=== PATIENT | male | born 1955 | race Caucasian/White ===

== ENCOUNTER 2018-02-15 11:13 | Observation (INO) | payer OTHER ==
[2018-02-15] MEDS ORDERED: BABY ASPIRIN 81 MG CHEW PO ONE (11:44)
[2018-02-15] MEDS ORDERED: Nitrostat 0.4 MG (ED) SL ONE (11:44)
--- NOTE | 2018-02-15 11:44 | ERPHSYRPT ---
- History of Present Illness Time Seen by Provider: 02/15/18 11:33 Historian: patient Patient Subjective Stated Complaint: pt here for chest pain to left rib area today and then radiates at times to right rib area. started on b/p pill since . pt thinks it is hes meds that is making him feel bad, he states he feels bad for alttle bit after he takes hes meds Triage Nursing Assessment: pt alert, walked in, resp easy, chest clear, no edema ,skin w/d/p Physician History: PATIENT WITH A HISTORY OF HYPERTENSION, COMPLAINS OF BILATERAL CHEST PAIN FOR 6 DAYS ASSOCIATED WITH OCCASIONAL DYSPNEA, WITH NUMBNESS IN BOTH ARMS. RATES HIS CHEST PAIN 4/10 PAIN SCALE. HE DENIES DIAPHORESIS OR PALPITATIONS. Timing/Duration: day(s) (6) Activities at Onset: none Quality: dullness, pressure Location: substernal Chest Pain Radiation: arm Severity of Pain-Max: moderate Severity of Pain-Current: moderate Modifying Factors: Improves With: exertion Associated Symptoms: denies symptoms Prior Chest Pain/Cardiac Workup: no prior chest pain Nitro Today/Relief: 0.4 mg x 2, provided by ED Aspirin Treatment Today: 81 mg x 4, provided by ED Allergies/Adverse Reactions: No Known Drug Allergies Allergy (Unverified 02/15/18 11:15) Home Medications: Lisinopril 20 mg DAILY 02/15/18 [History] Naproxen Sodium 220 mg [Aleve 220 MG] 220 mg DAILY 02/15/18 [History] Hx Tetanus, Diphtheria Vaccination/Date Given: No Hx Influenza Vaccination/Date Given: No Hx Pneumococcal Vaccination/Date Given: No Immunizations Up to Date: Yes - Past Medical History Pertinent Past Medical History: Yes Cardiac History: Hypertension - Past Surgical History Past Surgical History: Yes - Social History Smoking Status: Current every day smoker Exposure to second hand smoke: Yes Drug Use: none Patient Lives Alone: No - Nursing Vital Signs Nursing Vital Signs: Initial Vital Signs Temperature 97.2 F 02/15/18 11:16 Pulse Rate 80 02/15/18 11:16 Respiratory Rate 16 02/15/18 11:16 Blood Pressure 182/93 02/15/18 11:16 Pain Scale Pain Intensity 0 - Physical Exam General Appearance: no apparent distress, alert Eye Exam: PERRL/EOMI, eyes nml inspection Ears, Nose, Throat Exam: normal ENT inspection, moist mucous membranes Neck Exam: normal inspection, non-tender, supple, full range of motion Respiratory Exam: normal breath sounds, lungs clear, No respiratory distress Cardiovascular Exam: regular rate/rhythm, normal heart sounds Gastrointestinal/Abdomen Exam: soft, No tenderness, No mass Back Exam: normal inspection, No CVA tenderness, No vertebral tenderness Extremity Exam: normal inspection, normal range of motion Neurologic Exam: alert, oriented x 3, cooperative, normal mood/affect, sensation nml, No motor deficits Skin Exam: normal color, warm, dry SpO2 Interpretation: normal SpO2: 99 Oxygen Delivery: Room Air - Course EKG Interpreted by Me: RATE, Sinus Rhythm (RATE 65), NORMAL AXIS - CT Exams Chest CT Interpretation: Discussed w/radiologist (NEGATIVE CT PE STUDY) Ordered Tests: Active Orders 24 hr Category Date Time Status Up With Assistance ROUTINE Activity 02/15/18 13:51 Active Call Admit Doctor for Orders ROUTINE Care 02/15/18 13:50 Active Ice Cream Dispenser STAT Care 02/15/18 11:45 Active Code Status Order ROUTINE Care 02/15/18 13:50 Active EKG-ER Only STAT Care 02/15/18 11:44 Active IV Care Q6H Care 02/15/18 13:50 Active IV Insertion STAT Care 02/15/18 11:44 Active Implement Chest Pain Pathway ROUTINE Care 02/15/18 13:50 Active Oxygen-ED Only NASAL CANNULA 2 lpm Care 02/15/18 11:[address] in Observation ROUTINE Care 02/15/18 13:50 Active Bernardo Wiggins, Apply ROUTINE Care 02/15/18 13:50 Active Telemetry ROUTINE Care 02/15/18 13:50 Active Vital Signs Q4H Care 02/15/18 13:50 Active Weight,Daily 0600 Care 02/15/18 13:50 Active Cardiac Diet Diet 02/15/18 Dinner Active CHEST WITH CONTRAST [CT] Stat Exams 02/15/18 11:45 Completed CBC W DIFF Stat Lab 02/15/18 11:45 Completed CMP Stat Lab 02/15/18 11:45 Completed LIPID PROFILE AM.LAB Lab 02/16/18 04:00 Ordered NT PRO BNP Stat Lab 02/15/18 11:45 Completed PROTIME WITH INR Stat Lab 02/15/18 11:45 Completed TROPONIN Q3H Lab 02/15/18 11:45 Completed TROPONIN Q3H Lab 02/15/18 14:45 Ordered TROPONIN Q3H Lab 02/15/18 17:45 Ordered TROPONIN Q3H Lab 02/15/18 20:45 Ordered TROPONIN Q3H Lab 02/15/18 23:45 Ordered EKG Q8HX2,QAMX3,PRN RT 02/15/18 13:50 Active Pulse Oximetry Q4H RT 02/15/18 13:50 Active Transfer Order Routine Transfer 02/15/18 Ordered Medication Summary Generic Name Dose Route Start Last Admin Trade Name Freq PRN Reason Stop Dose Admin Acetaminophen 650 mg 02/15/18 13:50 Tylenol 325 Mg PO 03/17/18 13:49 Q4H PRN PRN PAIN AND/OR FEVER Al Hydrox/Mg Hydrox/Simethicone 30 ml 02/15/18 13:50 Maalox Es 30 Ml Unit Dose PO 03/17/18 13:49 Q4H PRN PRN INDIGESTION Aspirin 325 mg 02/16/18 10:00 Ecotrin 325 Mg PO 03/18/18 09:59 DAILY MASOOD Sodium Chloride 1,000 mls @ 100 mls/hr 02/15/18 11:45 02/15/18 11:55 Sodium Chloride 0.9% 1000 Ml IV 03/17/18 11:44 100 mls/hr .Q10H MASOOD Administration Sodium Chloride 500 mls @ 20 mls/hr 02/15/18 14:00 Sodium Chloride 0.9% 500 Ml IV 03/17/18 13:59 .Q24H MASOOD Lisinopril 20 mg 02/16/18 10:00 Zestril 10 Mg PO 03/18/18 09:59 DAILY MASOOD Magnesium Hydroxide 30 - 60 ml 02/15/18 13:50 Milk Of Magnesia 30 Ml PO 03/17/18 13:49 QDP PRN CONSTIPATION Morphine Sulfate 2 mg 02/15/18 13:50 Morphine Sulfate 2 Mg Inj IV 02/20/18 13:49 .Q15MIN PRN PRN CHEST PAIN Nitroglycerin 0.4 mg 02/15/18 13:50 Nitrostat 0.4 Mg Tablet SL 03/17/18 13:49 .Q5MIN PRN CHEST PAIN Ondansetron HCl 4 mg 02/15/18 13:50 Zofran 4 Mg/2 Ml Vial IV 03/17/18 13:49 Q4H PRN PRN NAUSEA/VOMITING Senna/Docusate Sodium 2 udtab 02/15/18 13:50 Senokot-S Tablet PO 03/17/18 13:49 BID PRN PRN CONSTIPATION Discontinued Medications Generic Name Dose Route Start Last Admin Trade Name Freq PRN Reason Stop Dose Admin Aspirin 324 mg 02/15/18 11:44 02/15/18 11:53 Baby Aspirin 81 Mg Chew PO 02/15/18 11:45 324 mg STAT ONE Administration Nitroglycerin 0.4 mg 02/15/18 11:44 02/15/18 11:53 Nitrostat 0.4 Mg (Ed) SL 02/15/18 11:45 0.4 mg STAT ONE Administration Nitroglycerin 1 gm 02/15/18 12:35 02/15/18 12:45 Nitro-Bid 2% Ud Packets TOP 02/15/18 12:36 1 gm STAT ONE Administration Nitroglycerin Confirm 02/15/18 12:45 Nitro-Bid 2% Ud Packets Administered 02/15/18 12:46 Dose 1 gm .ROUTE .[facility] Lab/Rad Data: Laboratory Result Diagrams 02/15/18 11:45 02/15/18 11:45 Laboratory Results 02/15/18 02/15/18 02/15/18 Range/Units 11:45 11:45 11:45 WBC (4.0-10.5) K/mm3 RBC (4.1-5.6) M/mm3 Hgb (12.5-18.0) gm/dl Hct (42-50) % MCV (78-100) fl MCH (26-32) pg MCHC (32-36) g/dl RDW (11.5-14.0) % Plt Count (150-450) K/mm3 MPV (6-9.5) fl Gran % (36.0-66.0) % Eos # (Auto) (0-0.5) Absolute Lymphs (auto) (1.0-4.6) Absolute Monos (auto) (0.0-1.3) Lymphocytes % (24.0-44.0) % Monocytes % (0.0-12.0) % Eosinophils % (0.00-5.0) % Basophils % (0.0-0.4) % Absolute Granulocytes (1.4-6.9) Basophils # (0-0.4) PT 12.2 (8.83-12.87) SECONDS INR 1.05 (0.8-3.0) Sodium 139 (137-145) mmol/L Potassium 4.0 (3.5-5.1) mmol/L Chloride 104 (98-107) mmol/L Carbon Dioxide 27 (22-30) mmol/L Anion Gap 11.4 (5-15) MEQ/L BUN 13 (9-20) mg/dL Creatinine 0.90 (0.66-1.25) mg/dL Estimated GFR > 60.0 ML/MIN Glucose 106 (74-106) mg/dL Calcium 9.3 (8.4-10.2) mg/dL Total Bilirubin 0.80 (0.2-1.3) mg/dL AST 29 (17-59) U/L ALT 16 (0-50) U/L Alkaline Phosphatase 102 (38-126) U/L Troponin I < 0.012 (0.000-0.034) ng/mL NT-Pro-B Natriuret Pep 56.5 (0-900) pg/mL Serum Total Protein 7.2 (6.3-8.2) g/dL Albumin 4.5 (3.5-5.0) g/dL 12/14/18 Range/Units 11:45 WBC 6.3 (4.0-10.5) K/mm3 RBC 4.66 (4.1-5.6) M/mm3 Hgb 15.3 (12.5-18.0) gm/dl Hct 45.4 (42-50) % MCV 97.4 (78-100) fl MCH 32.8 H (26-32) pg MCHC 33.7 (32-36) g/dl RDW 12.8 (11.5-14.0) % Plt Count 161 (150-450) K/mm3 MPV 10.5 H (6-9.5) fl Gran % 71.9 H (36.0-66.0) % Eos # (Auto) 0.09 (0-0.5) Absolute Lymphs (auto) 1.14 (1.0-4.6) Absolute Monos (auto) 0.53 (0.0-1.3) Lymphocytes % 18.1 L (24.0-44.0) % Monocytes % 8.4 (0.0-12.0) % Eosinophils % 1.4 (0.00-5.0) % Basophils % 0.2 (0.0-0.4) % Absolute Granulocytes 4.52 (1.4-6.9) Basophils # 0.01 (0-0.4) PT (8.83-12.87) SECONDS INR (0.8-3.0) Sodium (137-145) mmol/L Potassium (3.5-5.1) mmol/L Chloride (98-107) mmol/L Carbon Dioxide (22-30) mmol/L Anion Gap (5-15) MEQ/L BUN (9-20) mg/dL Creatinine (0.66-1.25) mg/dL Estimated GFR ML/MIN Glucose (74-106) mg/dL Calcium (8.4-10.2) mg/dL Total Bilirubin (0.2-1.3) mg/dL AST (17-59) U/L ALT (0-50) U/L Alkaline Phosphatase (38-126) U/L Troponin I (0.000-0.034) ng/mL NT-Pro-B Natriuret Pep (0-900) pg/mL Serum Total Protein (6.3-8.2) g/dL Albumin (3.5-5.0) g/dL - Progress Progress: improved, re-examined Progress Note: 02/15/18 13:47 ADMINISTERED 4 BABY ASA, NITROGLYCERIN 0.4MG X 2, FOLLOWED BY NITROPASTE 1 INCH ANTERIOR CHEST WALL. Blood Culture(s) Obtained: No Antibiotics given: No Discussed with Dr.: Lawler (DISCUSSED WITH DR LAWLER AT 1315 FOR OBSERVATION) - Departure Time of Disposition: 14:00 Departure Disposition: Observation Clinical Impression: ACUTE CHEST PAIN Condition: Stable Critical Care Time: No Referrals: KEYANA MOSS, [employer]PER[employer] [Primary Care Provider] -
[2018-02-15] MEDS ORDERED: Sodium Chloride 0.9% 1000 ML 1,000 ML IV SCH (11:45)
[2018-02-15 11:54] LABS: BASOPHIL % 0.2 % (0.0-0.4); Basophil (Absolute #) 0.01 (0-0.4); Eosinophil % 1.4 % (0.00-5.0); Eosinophil (Absolute #) 0.09 (0-0.5); Granulocyte Absolute (ANC) 4.52 (1.4-6.9); Granulocytes % 71.9 % (36.0-66.0); Hematocrit 45.4 % (42-50); Hemoglobin 15.3 gm/dl (12.5-18.0); Lymphocyte (Absolute #) 1.14 (1.0-4.6); Lymphocytes % 18.1 % (24.0-44.0); Mean Cell Volume 97.4 fl (78-100); Mean Corpuscular Hemoglobin 32.8 pg (26-32); Mean Corpuscular Hgb Concent. 33.7 g/dl (32-36); Mean Platelet Volume 10.5 fl (6-9.5); Monocyte (Absolute #) 0.53 (0.0-1.3); Monocytes % 8.4 % (0.0-12.0); Platelet Count 161 K/mm3 (150-450); Red Blood Count 4.66 M/mm3 (4.1-5.6); Red Cell Distribution Width 12.8 % (11.5-14.0); White Blood Count 6.3 K/mm3 (4.0-10.5)
[2018-02-15 12:08] LABS: INR 1.05 (0.8-3.0)
[2018-02-15] MEDS ORDERED: NITRO-BID 2% UD PACKETS TOP ONE (12:35)
[2018-02-15 12:45] LABS: ALBUMIN 4.5 g/dL (3.5-5.0); ALKALINE PHOSPHATASE 102 U/L (38-126); ANION GAP 11.4 MEQ/L (5-15); BLOOD UREA NITROGEN 13 mg/dL (9-20); CHLORIDE 104 mmol/L (98-107); Calcium 9.3 mg/dL (8.4-10.2); Carbon Dioxide 27 mmol/L (22-30); Glucose 106 mg/dL (74-106); NT PRO BNP 56.5 pg/mL (0-900); SGOT/AST 29 U/L (17-59); SGPT/ALT 16 U/L (0-50); SODIUM 139 mmol/L (137-145); Total Protein 7.2 g/dL (6.3-8.2)
[2018-02-15] MEDS ORDERED: NITRO-BID 2% UD PACKETS ONE (12:45)
--- NOTE | 2018-02-15 12:49 | XRAY ---
Indication: Chest pain 5 days. Dyspnea and weakness. High blood pressure. Multiple contiguous axial images obtained through the chest using 80 cc Isovue 370 contrast and PE protocol. Comparison: None There is satisfactory opacification of the pulmonary arteries to include the lobar and segmental branches. No filling defect or pulmonary embolus. Heart is not enlarged. Aorta is normal in course and caliber. No pathologic mediastinal/hilar lymphadenopathy. Lungs inflated with mild biapical pleural parenchymal scarring and minimal left base scarring. No pulmonary mass, infiltrate, or effusion. Bony thorax intact with minimal degenerative changes throughout the spine and tiny multilevel Schmorl nodes. Limited upper abdomen demonstrates mild fatty liver and 2 cm left mid renal exophytic cyst. Impression: 1. Negative CT PE study. 2. Incidental scattered scarring, fatty liver, and left renal cyst. CT DI 15.25
[2018-02-15] MEDS ORDERED: TYLENOL 325 MG PO PRN (13:50)
[2018-02-15] MEDS ORDERED: MAALOX ES 30 ML UNIT DOSE PO PRN (13:50)
[2018-02-15] MEDS ORDERED: Zofran 4 MG/2 ML VIAL IV PRN (13:50)
[2018-02-15] MEDS ORDERED: MILK OF MAGNESIA 30 ML PO PRN (13:50)
[2018-02-15] MEDS ORDERED: Nitrostat 0.4 MG Tablet SL PRN (13:50)
[2018-02-15] MEDS ORDERED: Senokot-S Tablet PO PRN (13:50)
[2018-02-15] MEDS ORDERED: MORPHINE SULFATE 2 MG INJ IV PRN (13:50)
[2018-02-15] MEDS ORDERED: Sodium Chloride 0.9% 500 ML 500 ML IV SCH (14:00)
[2018-02-16 00:13] VITALS: PULSE 70
[2018-02-16 04:18] VITALS: O2SAT 95
[2018-02-16 06:13] LABS: Risk Ratio 3.6
[2018-02-16] MEDS ORDERED: BABY ASPIRIN 81 MG CHEW ONE (06:42)
[2018-02-16] MEDS ORDERED: Nitrostat 0.4 MG (ED) SL ONE (06:42)
--- NOTE | 2018-02-16 06:47 | PCM.SSS ---
History of Present Illness - Chief Complaint Chief Complaint: acute chest pain for 1 day History of Present Illness: is a 62 year old male.pt here for chest pain to left rib area today and then radiates at times to right rib area. started on b/p pill since . pt thinks it is hes meds that is making him feel bad, he states he feels bad for a little bit after he takes hes meds - Review of Systems Constitutional: No Fever, No Chills Eyes: No Symptoms Ears, Nose, & Throat: No Symptoms Respiratory: No Cough, No Short Of Breath Cardiac: Chest Pain, No Edema, No Syncope Abdominal/Gastrointestinal: No Abdominal Pain, No Nausea, No Vomiting, No Diarrhea Genitourinary Symptoms: No Dysuria Musculoskeletal: No Back Pain, No Neck Pain Skin: No Rash Neurological: No Dizziness, No Focal Weakness, No Sensory Changes Psychological: No Symptoms Endocrine: No Symptoms Hematologic/Lymphatic: No Symptoms Immunological/Allergic: No Symptoms Medications & Allergies Home Medications: Home Medication List Lisinopril 20 mg DAILY 02/15/18 [History Confirmed 02/15/18] Naproxen Sodium 220 mg [Aleve 220 MG] 220 mg DAILY 02/15/18 [History Confirmed 02/15/18] Nitroglycerin 0.4 mg Tablet [Nitrostat 0.4 MG Tablet] 0.4 mg SL .Q5MIN PRN #30 bottle 02/16/18 [Rx] Allergies/Adverse Reactions: Allergies Allergy/AdvReac Type Severity Reaction Status Date / Time No Known Drug Allergies Allergy Unverified 02/15/18 11:15 - Past Medical History Past Medical History: Yes Neurological History: No Pertinent History ENT History: No Pertinent History Cardiac History: Hypertension Respiratory History: No Pertinent History Endocrine Medical History: No Pertinent History Musculoskelatal History: No Pertinent History GI Medical History: No Pertinent History History: No Pertinent History Pyscho-Social History: No Pertinent History Male Reproductive Disorders: Penile Cancer - Past Surgical History Past Surgical History: Yes Neuro Surgical History: No Pertinent History Cardiac History: No Pertinent History Respiratory Surgery: No Pertinent History GI Surgical History: No Pertinent History Genitourinary Surgical Hx: No Pertinent History Musculskeletal Surgical Hx: No Pertinent History Male Surgical History: No Pertinent History - Social History Smoking Status: Current every day smoker Exposure to second hand smoke: Yes Alcohol: None Drug Use: none - Physical Exam Vital Signs: Vital Signs - 24 hr Temp Pulse Pulse Resp BP Pulse Ox 02/16/18 04:00 98.5 F 70 18 127/76 95 02/16/18 00:00 98.9 F 70 13 132/69 94 L 02/15/18 22:11 96 02/15/18 20:00 96 02/15/18 19:51 98.6 F 64 18 151/77 96 02/15/18 14:50 97 02/15/18 14:46 98.2 F 69 18 149/77 96 02/15/18 14:01 99 02/15/18 13:19 77 16 132/82 99 02/15/18 12:00 80 18 137/81 99 02/15/18 11:57 72 H 02/15/18 11:51 152/89 02/15/18 11:46 77 18 147/98 99 02/15/18 11:18 78 02/15/18 11:16 97.2 F 80 16 182/93 General Appearance: no apparent distress, alert Neurologic Exam: alert, oriented x 3, cooperative, normal mood/affect, nml cerebellar function, nml station & gait, sensation nml, No motor deficits Eye Exam: PERRL/EOMI, eyes nml inspection Ears, Nose, Throat Exam: normal ENT inspection, TMs normal, pharynx normal, moist mucous membranes Neck Exam: normal inspection, non-tender, supple, full range of motion Respiratory Exam: normal breath sounds, lungs clear, No respiratory distress Cardiovascular Exam: regular rate/rhythm, normal heart sounds, normal peripheral pulses Gastrointestinal/Abdomen Exam: soft, normal bowel sounds, No tenderness, No mass Back Exam: normal inspection, normal range of motion, No CVA tenderness, No vertebral tenderness Extremity Exam: normal inspection, normal range of motion, pelvis stable Skin Exam: normal color, warm, dry, No rash Lymphatic Exam: No adenopathy Results - Labs Lab/Micro Results: Lab Results-Last 24 Hours 02/15/18 02/15/18 02/15/18 Range/Units 11:45 11:45 11:45 WBC 6.3 (4.0-10.5) K/mm3 RBC 4.66 (4.1-5.6) M/mm3 Hgb 15.3 (12.5-18.0) gm/dl Hct 45.4 (42-50) % MCV 97.4 (78-100) fl MCH 32.8 H (26-32) pg MCHC 33.7 (32-36) g/dl RDW 12.8 (11.5-14.0) % Plt Count 161 (150-450) K/mm3 MPV 10.5 H (6-9.5) fl Gran % 71.9 H (36.0-66.0) % Eos # (Auto) 0.09 (0-0.5) Absolute Lymphs (auto) 1.14 (1.0-4.6) Absolute Monos (auto) 0.53 (0.0-1.3) Lymphocytes % 18.1 L (24.0-44.0) % Monocytes % 8.4 (0.0-12.0) % Eosinophils % 1.4 (0.00-5.0) % Basophils % 0.2 (0.0-0.4) % Absolute Granulocytes 4.52 (1.4-6.9) Basophils # 0.01 (0-0.4) PT 12.2 (8.83-12.87) SECONDS INR 1.05 (0.8-3.0) Sodium 139 (137-145) mmol/L Potassium 4.0 (3.5-5.1) mmol/L Chloride 104 (98-107) mmol/L Carbon Dioxide 27 (22-30) mmol/L Anion Gap 11.4 (5-15) MEQ/L BUN 13 (9-20) mg/dL Creatinine 0.90 (0.66-1.25) mg/dL Estimated GFR > 60.0 ML/MIN Glucose 106 (74-106) mg/dL Calcium 9.3 (8.4-10.2) mg/dL Total Bilirubin 0.80 (0.2-1.3) mg/dL AST 29 (17-59) U/L ALT 16 (0-50) U/L Alkaline Phosphatase 102 (38-126) U/L Troponin I (0.000-0.034) ng/mL NT-Pro-B Natriuret Pep 56.5 (0-900) pg/mL Serum Total Protein 7.2 (6.3-8.2) g/dL Albumin 4.5 (3.5-5.0) g/dL Triglycerides (30-150) mg/dL Cholesterol (50-200) mg/dL LDL Cholesterol (30-100) mg/dL HDL Cholesterol (40-60) mg/dL Heart Disease Risk Ratio 02/15/18 02/15/18 02/15/18 Range/Units 11:45 15:15 17:45 WBC (4.0-10.5) K/mm3 RBC (4.1-5.6) M/mm3 Hgb (12.5-18.0) gm/dl Hct (42-50) % MCV (78-100) fl MCH (26-32) pg MCHC (32-36) g/dl RDW (11.5-14.0) % Plt Count (150-450) K/mm3 MPV (6-9.5) fl Gran % (36.0-66.0) % Eos # (Auto) (0-0.5) Absolute Lymphs (auto) (1.0-4.6) Absolute Monos (auto) (0.0-1.3) Lymphocytes % (24.0-44.0) % Monocytes % (0.0-12.0) % Eosinophils % (0.00-5.0) % Basophils % (0.0-0.4) % Absolute Granulocytes (1.4-6.9) Basophils # (0-0.4) PT (8.83-12.87) SECONDS INR (0.8-3.0) Sodium (137-145) mmol/L Potassium (3.5-5.1) mmol/L Chloride (98-107) mmol/L Carbon Dioxide (22-30) mmol/L Anion Gap (5-15) MEQ/L BUN (9-20) mg/dL Creatinine (0.66-1.25) mg/dL Estimated GFR ML/MIN Glucose (74-106) mg/dL Calcium (8.4-10.2) mg/dL Total Bilirubin (0.2-1.3) mg/dL AST (17-59) U/L ALT (0-50) U/L Alkaline Phosphatase (38-126) U/L Troponin I < 0.012 < 0.012 < 0.012 (0.000-0.034) ng/mL NT-Pro-B Natriuret Pep (0-900) pg/mL Serum Total Protein (6.3-8.2) g/dL Albumin (3.5-5.0) g/dL Triglycerides (30-150) mg/dL Cholesterol (50-200) mg/dL LDL Cholesterol (30-100) mg/dL HDL Cholesterol (40-60) mg/dL Heart Disease Risk Ratio 02/16/18 Range/Units 05:35 WBC (4.0-10.5) K/mm3 RBC (4.1-5.6) M/mm3 Hgb (12.5-18.0) gm/dl Hct (42-50) % MCV (78-100) fl MCH (26-32) pg MCHC (32-36) g/dl RDW (11.5-14.0) % Plt Count (150-450) K/mm3 MPV (6-9.5) fl Gran % (36.0-66.0) % Eos # (Auto) (0-0.5) Absolute Lymphs (auto) (1.0-4.6) Absolute Monos (auto) (0.0-1.3) Lymphocytes % (24.0-44.0) % Monocytes % (0.0-12.0) % Eosinophils % (0.00-5.0) % Basophils % (0.0-0.4) % Absolute Granulocytes (1.4-6.9) Basophils # (0-0.4) PT (8.83-12.87) SECONDS INR (0.8-3.0) Sodium (137-145) mmol/L Potassium (3.5-5.1) mmol/L Chloride (98-107) mmol/L Carbon Dioxide (22-30) mmol/L Anion Gap (5-15) MEQ/L BUN (9-20) mg/dL Creatinine (0.66-1.25) mg/dL Estimated GFR ML/MIN Glucose (74-106) mg/dL Calcium (8.4-10.2) mg/dL Total Bilirubin (0.2-1.3) mg/dL AST (17-59) U/L ALT (0-50) U/L Alkaline Phosphatase (38-126) U/L Troponin I (0.000-0.034) ng/mL NT-Pro-B Natriuret Pep (0-900) pg/mL Serum Total Protein (6.3-8.2) g/dL Albumin (3.5-5.0) g/dL Triglycerides 66 (30-150) mg/dL Cholesterol 135 (50-200) mg/dL LDL Cholesterol 83 (30-100) mg/dL HDL Cholesterol 37 L (40-60) mg/dL Heart Disease Risk Ratio 3.6 - Radiology Impressions Radiology Exams & Impressions: Radiology Procedures Category Date Time Status CHEST WITH CONTRAST [CT] Stat Exams 02/15/18 11:45 Completed - Other Procedures and Tests Respiratory Therapy 02/17/18 05:00 EKG ONCE 02/18/18 05:00 EKG ONCE Assessment/Plan (1) Chest pain Current Visit: Yes Status: Acute Onset Date: ~02/15/18 Code(s): R07.9 - CHEST PAIN, UNSPECIFIED (2) Hypertension Current Visit: Yes Status: Acute Onset Date: ~02/15/18 Code(s): I10 - ESSENTIAL (PRIMARY) HYPERTENSION Hospital Summary - Hospital Course Hospital Course: Last Vital Signs Temp 98.5 F 02/16/18 04:00 Pulse 70 02/16/18 04:00 Resp 18 02/16/18 04:00 BP 127/76 02/16/18 04:00 Pulse Ox 95 02/16/18 04:00 Allergies No Known Drug Allergies Allergy (Unverified 02/15/18 11:15) Active Medications Acetaminophen (Tylenol 325 Mg) 650 mg PO Q4H PRN PRN PRN Reason: PAIN AND/OR FEVER Stop: 03/17/18 13:49 Al Hydrox/Mg Hydrox/Simethicone (Maalox Es 30 Ml Unit Dose) 30 ml PO Q4H PRN PRN PRN Reason: INDIGESTION Stop: 03/17/18 13:49 Last Admin: 02/16/18 03:48 Dose: 30 ml Aspirin (Ecotrin 325 Mg) 325 mg PO DAILY [facility] Stop: 03/18/18 09:59 Sodium Chloride (Sodium Chloride 0.9% 500 Ml) 500 mls @ 20 mls/hr IV .Q24H [facility] Stop: 03/17/18 13:59 Influenza Virus Vaccine (Fluzone Quad (36mo-64yo) [id number] Syringe) 60 mcg IM .ONCE ONE Stop: 02/16/18 10:01 Lisinopril (Zestril 20 Mg) 20 mg PO DAILY [facility] Stop: 03/18/18 09:59 Magnesium Hydroxide (Milk Of Magnesia 30 Ml) 30 - 60 ml PO QDP PRN PRN Reason: CONSTIPATION Stop: 03/17/18 13:49 Morphine Sulfate (Morphine Sulfate 2 Mg Inj) 2 mg IV .Q15MIN PRN PRN PRN Reason: CHEST PAIN Stop: 02/20/18 13:49 Naproxen (Naprosyn 500 Mg) 250 mg PO DAILY [facility] Stop: 03/18/18 09:59 Nitroglycerin (Nitrostat 0.4 Mg Tablet) 0.4 mg SL .Q5MIN PRN PRN Reason: CHEST PAIN Stop: 03/17/18 13:49 Ondansetron HCl (Zofran 4 Mg/2 Ml Vial) 4 mg IV Q4H PRN PRN PRN Reason: NAUSEA/VOMITING Stop: 03/17/18 13:49 Senna/Docusate Sodium (Senokot-S Tablet) 2 udtab PO BID PRN PRN PRN Reason: CONSTIPATION Stop: 03/17/18 13:49 Intake & Output 02/15/18 02/16/18 11:59 11:59 Intake Total 1801 Output Total 2200 Balance -399 Weight 87.09 kg 85.5 kg Orders 02/16/18 10:00 Flu Vacc [id number] 36Mos Up/Pf [FLUZONE QUAD (36mo-64yo) [id number] SYRINGE] 60 mcg IM .ONCE ONE Naproxen 500 mg [Naprosyn 500 MG] 250 mg PO DAILY Lab Tests 02/15/18 02/15/18 02/15/18 11:45 11:45 11:45 WBC 6.3 RBC 4.66 Hgb 15.3 Hct 45.4 MCV 97.4 MCH 32.8 H MCHC 33.7 RDW 12.8 Plt Count 161 MPV 10.5 H Gran % 71.9 H Eos # (Auto) 0.09 Absolute Lymphs (auto) 1.14 Absolute Monos (auto) 0.53 Lymphocytes % 18.1 L Monocytes % 8.4 Eosinophils % 1.4 Basophils % 0.2 Absolute Granulocytes 4.52 Basophils # 0.01 PT 12.2 INR 1.05 Sodium 139 Potassium 4.0 Chloride 104 Carbon Dioxide 27 Anion Gap 11.4 BUN 13 Creatinine 0.90 Estimated GFR > 60.0 Glucose 106 Calcium 9.3 Total Bilirubin 0.80 AST 29 ALT 16 Alkaline Phosphatase 102 Troponin I NT-Pro-B Natriuret Pep 56.5 Serum Total Protein 7.2 Albumin 4.5 Triglycerides Cholesterol LDL Cholesterol HDL Cholesterol Heart Disease Risk Ratio 02/15/18 02/15/18 02/15/18 11:45 15:15 17:45 WBC RBC Hgb Hct MCV MCH MCHC RDW Plt Count MPV Gran % Eos # (Auto) Absolute Lymphs (auto) Absolute Monos (auto) Lymphocytes % Monocytes % Eosinophils % Basophils % Absolute Granulocytes Basophils # PT INR Sodium Potassium Chloride Carbon Dioxide Anion Gap BUN Creatinine Estimated GFR Glucose Calcium Total Bilirubin AST ALT Alkaline Phosphatase Troponin I < 0.012 < 0.012 < 0.012 NT-Pro-B Natriuret Pep Serum Total Protein Albumin Triglycerides Cholesterol LDL Cholesterol HDL Cholesterol Heart Disease Risk Ratio 02/16/18 05:35 WBC RBC Hgb Hct MCV MCH MCHC RDW Plt Count MPV Gran % Eos # (Auto) Absolute Lymphs (auto) Absolute Monos (auto) Lymphocytes % Monocytes % Eosinophils % Basophils % Absolute Granulocytes Basophils # PT INR Sodium Potassium Chloride Carbon Dioxide Anion Gap BUN Creatinine Estimated GFR Glucose Calcium Total Bilirubin AST ALT Alkaline Phosphatase Troponin I NT-Pro-B Natriuret Pep Serum Total Protein Albumin Triglycerides 66 Cholesterol 135 LDL Cholesterol 83 HDL Cholesterol 37 L Heart Disease Risk Ratio 3.6 - Vitals & Intake/Output Vital Signs: Vital Signs Temperature 98.5 F 02/16/18 04:00 Pulse Rate 70 02/16/18 04:00 Respiratory Rate 18 02/16/18 04:00 Blood Pressure 127/76 02/16/18 04:00 O2 Sat by Pulse Oximetry 95 02/16/18 04:00 Intake & Output: Intake & Output 02/13/18 02/14/18 02/15/18 02/16/18 11:59 11:59 11:59 11:59 Intake Total 1801 Output Total 2200 Balance -399 Weight 87.09 kg 85.5 kg - Lab Result Diagrams: 02/15/18 11:45 02/15/18 11:45 Lab Results-Last 24 Hrs: Lab Results-Last 24 Hours 02/15/18 02/15/18 02/15/18 Range/Units 11:45 11:45 11:45 WBC 6.3 (4.0-10.5) K/mm3 RBC 4.66 (4.1-5.6) M/mm3 Hgb 15.3 (12.5-18.0) gm/dl Hct 45.4 (42-50) % MCV 97.4 (78-100) fl MCH 32.8 H (26-32) pg MCHC 33.7 (32-36) g/dl RDW 12.8 (11.5-14.0) % Plt Count 161 (150-450) K/mm3 MPV 10.5 H (6-9.5) fl Gran % 71.9 H (36.0-66.0) % Eos # (Auto) 0.09 (0-0.5) Absolute Lymphs (auto) 1.14 (1.0-4.6) Absolute Monos (auto) 0.53 (0.0-1.3) Lymphocytes % 18.1 L (24.0-44.0) % Monocytes % 8.4 (0.0-12.0) % Eosinophils % 1.4 (0.00-5.0) % Basophils % 0.2 (0.0-0.4) % Absolute Granulocytes 4.52 (1.4-6.9) Basophils # 0.01 (0-0.4) PT 12.2 (8.83-12.87) SECONDS INR 1.05 (0.8-3.0) Sodium 139 (137-145) mmol/L Potassium 4.0 (3.5-5.1) mmol/L Chloride 104 (98-107) mmol/L Carbon Dioxide 27 (22-30) mmol/L Anion Gap 11.4 (5-15) MEQ/L BUN 13 (9-20) mg/dL Creatinine 0.90 (0.66-1.25) mg/dL Estimated GFR > 60.0 ML/MIN Glucose 106 (74-106) mg/dL Calcium 9.3 (8.4-10.2) mg/dL Total Bilirubin 0.80 (0.2-1.3) mg/dL AST 29 (17-59) U/L ALT 16 (0-50) U/L Alkaline Phosphatase 102 (38-126) U/L Troponin I (0.000-0.034) ng/mL NT-Pro-B Natriuret Pep 56.5 (0-900) pg/mL Serum Total Protein 7.2 (6.3-8.2) g/dL Albumin 4.5 (3.5-5.0) g/dL Triglycerides (30-150) mg/dL Cholesterol (50-200) mg/dL LDL Cholesterol (30-100) mg/dL HDL Cholesterol (40-60) mg/dL Heart Disease Risk Ratio 02/15/18 02/15/18 02/15/18 Range/Units 11:45 15:15 17:45 WBC (4.0-10.5) K/mm3 RBC (4.1-5.6) M/mm3 Hgb (12.5-18.0) gm/dl Hct (42-50) % MCV (78-100) fl MCH (26-32) pg MCHC (32-36) g/dl RDW (11.5-14.0) % Plt Count (150-450) K/mm3 MPV (6-9.5) fl Gran % (36.0-66.0) % Eos # (Auto) (0-0.5) Absolute Lymphs (auto) (1.0-4.6) Absolute Monos (auto) (0.0-1.3) Lymphocytes % (24.0-44.0) % Monocytes % (0.0-12.0) % Eosinophils % (0.00-5.0) % Basophils % (0.0-0.4) % Absolute Granulocytes (1.4-6.9) Basophils # (0-0.4) PT (8.83-12.87) SECONDS INR (0.8-3.0) Sodium (137-145) mmol/L Potassium (3.5-5.1) mmol/L Chloride (98-107) mmol/L Carbon Dioxide (22-30) mmol/L Anion Gap (5-15) MEQ/L BUN (9-20) mg/dL Creatinine (0.66-1.25) mg/dL Estimated GFR ML/MIN Glucose (74-106) mg/dL Calcium (8.4-10.2) mg/dL Total Bilirubin (0.2-1.3) mg/dL AST (17-59) U/L ALT (0-50) U/L Alkaline Phosphatase (38-126) U/L Troponin I < 0.012 < 0.012 < 0.012 (0.000-0.034) ng/mL NT-Pro-B Natriuret Pep (0-900) pg/mL Serum Total Protein (6.3-8.2) g/dL Albumin (3.5-5.0) g/dL Triglycerides (30-150) mg/dL Cholesterol (50-200) mg/dL LDL Cholesterol (30-100) mg/dL HDL Cholesterol (40-60) mg/dL Heart Disease Risk Ratio 02/16/18 Range/Units 05:35 WBC (4.0-10.5) K/mm3 RBC (4.1-5.6) M/mm3 Hgb (12.5-18.0) gm/dl Hct (42-50) % MCV (78-100) fl MCH (26-32) pg MCHC (32-36) g/dl RDW (11.5-14.0) % Plt Count (150-450) K/mm3 MPV (6-9.5) fl Gran % (36.0-66.0) % Eos # (Auto) (0-0.5) Absolute Lymphs (auto) (1.0-4.6) Absolute Monos (auto) (0.0-1.3) Lymphocytes % (24.0-44.0) % Monocytes % (0.0-12.0) % Eosinophils % (0.00-5.0) % Basophils % (0.0-0.4) % Absolute Granulocytes (1.4-6.9) Basophils # (0-0.4) PT (8.83-12.87) SECONDS INR (0.8-3.0) Sodium (137-145) mmol/L Potassium (3.5-5.1) mmol/L Chloride (98-107) mmol/L Carbon Dioxide (22-30) mmol/L Anion Gap (5-15) MEQ/L BUN (9-20) mg/dL Creatinine (0.66-1.25) mg/dL Estimated GFR ML/MIN Glucose (74-106) mg/dL Calcium (8.4-10.2) mg/dL Total Bilirubin (0.2-1.3) mg/dL AST (17-59) U/L ALT (0-50) U/L Alkaline Phosphatase (38-126) U/L Troponin I (0.000-0.034) ng/mL NT-Pro-B Natriuret Pep (0-900) pg/mL Serum Total Protein (6.3-8.2) g/dL Albumin (3.5-5.0) g/dL Triglycerides 66 (30-150) mg/dL Cholesterol 135 (50-200) mg/dL LDL Cholesterol 83 (30-100) mg/dL HDL Cholesterol 37 L (40-60) mg/dL Heart Disease Risk Ratio 3.6 - Radiology Exams Ordered Rad Exams-Entire Visit: Radiology Procedures Category Date Time Status CHEST WITH CONTRAST [CT] Stat Exams 02/15/18 11:45 Completed - Procedures and Test Procedures and Tests throughout Hospitalization: Therapy Orders & Screens 02/15/18 15:15 Smoking Cessation Education ONCE Comment: Diagnosis: acute chest pain Smoking Status: Current every day smoker Do you dip or chew tobacco: No 02/15/18 19:17 EKG ONCE Comment: 02/16/18 05:00 EKG ONCE Comment: 02/17/18 05:00 EKG ONCE Comment: 02/18/18 05:00 EKG ONCE Comment: - Discharge Discharge Date: 02/16/18 Disposition: Home, Self-Care Condition: Stable Prescriptions: New Nitroglycerin 0.4 mg Tablet [Nitrostat 0.4 MG Tablet] 0.4 mg SL .Q5MIN PRN #30 bottle PRN Reason: Chest Pain Continue Naproxen Sodium 220 mg [Aleve 220 MG] 220 mg DAILY Lisinopril 20 mg DAILY Follow up with: KEYANA MOSS NP [Primary Care Provider] - 1 Week
[2018-02-16 08:16] VITALS: BP 151/82
[2018-02-16] MEDS ORDERED: Ecotrin 325 MG PO SCH (10:00)
[2018-02-16] MEDS ORDERED: Naprosyn 500 MG PO SCH (10:00)
[2018-02-16] MEDS ORDERED: Zestril 20 MG PO SCH (10:00)
[2018-02-16] MEDS ORDERED: FLUZONE QUAD (36mo-64yo) 2018-2019 SYRINGE IM ONE (10:00)
== END 2018-02-16 10:00 | disposition home or self-care (01) ==
LOC: ED 11:13 → MED SURG 14:17
PROVIDERS: ADMIT General Practice; ATTEND General Practice
DX: R07.9 Chest pain, unspecified (principal); I10 Essential (primary) hypertension; Z23 Encounter for immunization; Z85.89 Personal history of malignant neoplasm of other organs and systems; Z72.0 Tobacco use
CPT/HCPCS: 36000; 36415; 71260; 80053; 80061; 83721; 83880; 84484; 85025; 85610; 93005; 93041; 93268; 94760; 96360; 96361; 99285; G0008; G0378; 90686; A9270-GY

== ENCOUNTER 2023-09-15 18:10 | Emergency (ER) | payer MEDICARE ==
[2023-09-15 18:26] VITALS: TEMP 97.8
--- NOTE | 2023-09-15 18:31 | ERPHSYRPT ---
- History of Present Illness Source: patient Exam Limitations: no limitations Patient Subjective Stated Complaint: C/O "spitting up" but not vomiting, light headedness, "being sick," and sweaty for 2 days Triage Nursing Assessment: Patient arrived by ambulance. He is alert and oriented. No SOB. Patient is diaphoretic. Patient ambulated per self from EMS cot to ER bed without difficulties. Hx Tetanus, Diphtheria Vaccination/Date Given: Yes Hx Influenza Vaccination/Date Given: Yes Hx Pneumococcal Vaccination/Date Given: No Immunizations Up to Date: Yes <RAFITA ARREGUIN - Last Filed: 09/15/23 18:31> - History of Present Illness Timing/Duration: day(s) (3) Cough Quality/Degree: mild, sputum Possible Cause: no prior episodes Modifying Factors: Worsens With: nothing Associated Symptoms: cough, dizziness, facial pain, lightheadedness, nasal congestion, nasal drainage, sinus infection, No fever, No chills, No chest pain/soreness, No earache, No headache, No shortness of breath, No sore throat, No wheezing <JULIA NAVA - Last Filed: 09/17/23 08:16> - History of Present Illness Time Seen by Provider: 09/15/23 18:30 Physician History: The patient, with a history of hypertension, presented with a chief complaint of lightheadedness and dizziness that has been occurring for the past couple of days. The episodes of dizziness were reported to occur approximately every hour, even while sitting, and were associated with a sensation of the room spinning. The patient also reported experiencing nausea and excessive sweating during these episodes. In addition to these symptoms, the patient reported having a sinus infection, characterized by facial pain and drainage, which started a few days prior to the onset of the dizziness. The patient denied having any fevers, chest pain, shortness of breath, or gastrointestinal symptoms. However, they did report coughing when the sinus drainage began. The patient also reported a hard, painless mass on the inside of their mouth, which they initially thought was a burn. They denied any drainage from the mass and reported that it was too painful to puncture with a needle. The patient denied any history of tobacco use. The patient's current medication regimen includes a blood pressure medication, which they were advised to take slowly due to potential side effects. The patient did not report any known allergies to antibiotics. (JULIA NAVA) Allergies/Adverse Reactions: No Known Drug Allergies Allergy (Verified 09/15/23 18:13) Home Medications: lisinopriL [Lisinopril] 20 mg DAILY 02/15/18 [History] Aspirin EC 81 mg [Ecotrin 81 mg] 81 mg PO CLARIFY 09/15/23 [History] Travel Risk - International Travel Have you traveled outside of the country in past 3 weeks: No - Emerging Infectious Disease Are you exhibiting symptoms associated with any current EIDs: Yes Symptoms: Headaches/Body Aches/, Other (Please Comment) <RAFITA ARREGUIN - Last Filed: 09/15/23 18:31> - Review of Systems All Other Systems: Reviewed and Negative <JULIA NAVA - Last Filed: 09/17/23 08:16> - Past Medical History Pertinent Past Medical History: Yes Neurological History: No Pertinent History ENT History: No Pertinent History Cardiac History: Hypertension Respiratory History: No Pertinent History Endocrine Medical History: No Pertinent History Musculoskeletal History: No Pertinent History GI Medical History: Hernia History: No Pertinent History Psycho-Social History: No Pertinent History Male Reproductive Disorders: No Pertinent History - Past Surgical History Past Surgical History: Yes Neuro Surgical History: No Pertinent History Cardiac: No Pertinent History Respiratory: No Pertinent History Gastrointestinal: Hernia Repair Genitourinary: No Pertinent History Musculoskeletal: No Pertinent History Male Surgical History: No Pertinent History - Social History Smoking Status: Current every day smoker How long have you smoked: 50 YEARS Exposure to second hand smoke: No Drug Use: none Patient Lives Alone: No - Social Determinants of Health Will the patient participate in the screening: Yes Do you worry about a steady place to live?: No Do you have any problems with any of the following?: No known problems In the past 12 months,have you had to go without utilities?: No Transportation Issues: No Has anyone in your support network made you feel unsafe?: No Have you or anyone in your house had to go without enough: No <RAFITA ARREGUIN - Last Filed: 09/15/23 18:31> - Physical Exam SpO2: 95 <RAFITA ARREGUIN - Last Filed: 09/15/23 18:31> - Physical Exam General Appearance: no apparent distress Eye Exam: PERRL/EOMI, eyes nml inspection Ears, Nose, Throat Exam: TMs normal, pharynx normal, moist mucous membranes, other (firm [id number] lesion left upper palate, TTP, no drainage, mild erythema) Neck Exam: normal inspection, non-tender, supple, full range of motion Respiratory Exam: airway intact, diminished breath sounds, wheezing, No chest tenderness, No respiratory distress Cardiovascular Exam: regular rate/rhythm, normal heart sounds, capillary refill <2 sec, No edema Gastrointestinal/Abdomen Exam: soft, No tenderness, No distention, No mass, No guarding, No rebound Extremity Exam: No swelling, No tenderness Neurologic Exam: alert, oriented x 3, cooperative Skin Exam: normal color, warm, dry SpO2 Interpretation: normal O2 Delivery: Room Air <JULIA NAVA - Last Filed: 09/17/23 08:16> - Nursing Vital Signs Nursing Vital Signs: Initial Vital Signs Temperature 97.8 F 09/15/23 18:15 Pulse Rate 68 09/15/23 18:15 Respiratory Rate 17 09/15/23 18:15 Blood Pressure 128/71 09/15/23 18:15 O2 Sat by Pulse Oximetry 95 09/15/23 18:15 Pain Scale Pain Intensity 0 - Course Nursing assessment & vital signs reviewed: Yes - CT Exams Maxillofacial Bones CT Interpretation: Tele-radiologist Report, Other (sinusitis, no mass appreciated in palate) <JULIA NAVA - Last Filed: 09/17/23 08:16> Ordered Tests: Medication Summary Discontinued Medications Generic Name Dose Route Start Last Admin Trade Name Dickq PRN Reason Stop Dose Admin Methylprednisolone Sodium 0 mg 09/15/23 19:22 09/15/23 19:28 Succinate 125 mg/ Sterile IV 09/15/23 19:23 125 mg Water 2 ml STAT ONE Administration Doxycycline Hyclate 100 mg 09/15/23 19:21 09/15/23 19:28 Doxycycline Hyclate 100 Mg Tablet PO 09/15/23 19:22 100 mg STAT ONE Administration Doxycycline Hyclate Confirm 09/15/23 19:27 Doxycycline Hyclate 100 Mg Tablet Administered 09/15/23 19:28 Dose 100 mg .ROUTE .STK-MED ONE Sodium Chloride 1,000 mls @ 999 mls/hr 09/15/23 18:29 09/15/23 19:46 Sodium Chloride 0.9% 1000 Ml IV 09/15/23 19:29 Infused .Q1H1M STA Infusion Sodium Chloride Confirm 09/15/23 18:40 Sodium Chloride 0.9% 1000 Ml Administered 09/15/23 18:41 Dose 1,000 mls @ ud .ROUTE .STK-MED ONE Meclizine HCl 25 mg 09/15/23 22:29 09/15/23 22:31 Meclizine Hcl 25 Mg Tablet PO 09/15/23 22:30 25 mg STAT ONE Administration Meclizine HCl Confirm 09/15/23 22:31 Meclizine Hcl 25 Mg Tablet Administered 09/15/23 22:32 Dose 25 mg .ROUTE .STK-MED ONE Methylprednisolone Sodium Succinate Confirm 09/15/23 19:27 Methylprednis Sod Succ 125 Mg/2 Ml Vial Administered 09/15/23 19:28 Dose 125 mg .ROUTE .STK-MED ONE Ondansetron HCl 4 mg 09/15/23 18:29 09/15/23 18:41 Ondansetron Hcl 4 Mg/2 Ml Vial IV 09/15/23 18:30 4 mg STAT ONE Administration Ondansetron HCl Confirm 09/15/23 18:40 Ondansetron Hcl 4 Mg/2 Ml Vial Administered 09/15/23 18:41 Dose 4 mg .ROUTE .STK-MED ONE Pantoprazole Sodium 40 mg 09/15/23 21:46 09/15/23 21:56 Pantoprazole 40 Mg Vial IV 09/15/23 21:47 40 mg STAT ONE Administration Pantoprazole Sodium Confirm 09/15/23 21:55 Pantoprazole 40 Mg Vial Administered 09/15/23 21:56 Dose 40 mg IV .STK-MED ONE Sterile Water Confirm 09/15/23 19:27 Water For Injection,Sterile 10 Ml Vial Administered 09/15/23 19:28 Dose 10 ml IJ .STK-MED ONE Lab/Rad Data: Laboratory Result Diagrams 09/15/23 18:30 09/15/23 18:30 Laboratory Results 09/15/23 09/15/23 09/15/23 Range/Units 21:30 18:45 18:30 WBC (4.23-9.07) x10^3/uL RBC (4.63-6.08) x10^6/uL Hgb (13.7-17.5) g/dL Hct (40.1-51.0) % MCV (79.0-92.2) fL MCH (25.7-32.2) pg MCHC (32.3-36.5) g/dL RDW (11.6-14.4) % Plt Count (163-337) x10^3/uL MPV (9.4-12.4) fL Gran % (34.0-67.9) % Immature Gran % (Auto) (0.001-0.429) % Nucleat RBC Rel Count (0.00-0.2) % Eos # (Auto) (0.04-0.54) x10^3/uL Immature Gran # (Auto) (0.001-0.031) x10^3u/L Absolute Lymphs (auto) (1.32-3.57) x10^3/uL Absolute Monos (auto) (0.30-0.82) x10^3/uL Absolute Nucleated RBC (0.00-0.012) x10^3u/L Lymphocytes % (21.8-53.1) % Monocytes % (5.3-12.2) % Eosinophils % (0.8-7.0) % Basophils % (0.2-1.2) % Absolute Granulocytes (1.78-5.38) x10^3/uL Basophils # (0.01-0.08) x10^3/uL Sodium (135-145) mmol/L Potassium (3.5-5.1) mmol/L Chloride (98-107) mmol/L Carbon Dioxide (22-30) mmol/L Anion Gap (5-15) MEQ/L BUN (9-20) mg/dL Creatinine (0.66-1.25) mg/dL Estimated GFR ML/MIN Glucose (74-106) mg/dL Lactic Acid 1.3 (0.4-2.0) Calcium (8.4-10.2) mg/dL Total Bilirubin (0.2-1.3) mg/dL AST (17-59) U/L ALT (0-50) U/L Alkaline Phosphatase (38-126) U/L Troponin I (0.000-0.033) ng/mL Serum Total Protein (6.3-8.2) g/dL Albumin (3.5-5.0) g/dL Urine Color Yellow (Yellow) Urine Appearance Clear (Clear) Urine pH 6.5 (4.6-8.0) Ur Specific Shepherd >=1.030 A (1.005-1.030) Urine Protein Trace A (Negative) Urine Glucose (UA) Negative (Negative) mg/dL Urine Ketones Trace A (Negative) Urine Blood Negative (Negative) Urine Nitrite Negative (Negative) Urine Bilirubin Negative (Negative) Urine Urobilinogen 1.0 A (0.2) mg/dL Ur Leukocyte Esterase Negative (Negative) U Hyaline Cast (Auto) NONE SEEN (0-2) /LPF Urine Microscopic RBC 0-2 (0-5) /HPF Urine Microscopic WBC 0-2 (0-5) /HPF Ur Epithelial Cells None Seen (None Seen) /HPF Urine Bacteria None Seen (None Seen) /HPF Urine Culture Reflexed NO (NO) Influenza Type A Ag NEGATIVE (NEGATIVE) Influenza Type B Ag NEGATIVE (NEGATIVE) RSV (PCR) NEGATIVE (NEGATIVE) SARS-CoV-2 (PCR) NEGATIVE (NEGATIVE) 09/15/23 09/15/23 09/15/23 Range/Units 18:30 18:30 18:30 WBC 9.4 H (4.23-9.07) x10^3/uL RBC 4.53 L (4.63-6.08) x10^6/uL Hgb 15.1 (13.7-17.5) g/dL Hct 44.2 (40.1-51.0) % MCV 97.6 H (79.0-92.2) fL MCH 33.3 H (25.7-32.2) pg MCHC 34.2 (32.3-36.5) g/dL RDW 12.7 (11.6-14.4) % Plt Count 201 (163-337) x10^3/uL MPV 10.3 (9.4-12.4) fL Gran % 70.8 H (34.0-67.9) % Immature Gran % (Auto) 0.4 (0.001-0.429) % Nucleat RBC Rel Count 0.0 (0.00-0.2) % Eos # (Auto) 0.16 (0.04-0.54) x10^3/uL Immature Gran # (Auto) 0.04 H (0.001-0.031) x10^3u/L Absolute Lymphs (auto) 1.77 (1.32-3.57) x10^3/uL Absolute Monos (auto) 0.71 (0.30-0.82) x10^3/uL Absolute Nucleated RBC 0.00 (0.00-0.012) x10^3u/L Lymphocytes % 18.9 L (21.8-53.1) % Monocytes % 7.6 (5.3-12.2) % Eosinophils % 1.7 (0.8-7.0) % Basophils % 0.6 (0.2-1.2) % Absolute Granulocytes 6.64 H (1.78-5.38) x10^3/uL Basophils # 0.06 (0.01-0.08) x10^3/uL Sodium 139 (135-145) mmol/L Potassium 3.8 (3.5-5.1) mmol/L Chloride 106 (98-107) mmol/L Carbon Dioxide 26 (22-30) mmol/L Anion Gap 10.8 (5-15) MEQ/L BUN 21 H (9-20) mg/dL Creatinine 0.81 (0.66-1.25) mg/dL Estimated GFR 97.9 ML/MIN Glucose 136 H (74-106) mg/dL Lactic Acid (0.4-2.0) Calcium 9.2 (8.4-10.2) mg/dL Total Bilirubin 0.60 (0.2-1.3) mg/dL AST 27 (17-59) U/L ALT 19 (0-50) U/L Alkaline Phosphatase 114 (38-126) U/L Troponin I < 0.012 (0.000-0.033) ng/mL Serum Total Protein 7.3 (6.3-8.2) g/dL Albumin 4.3 (3.5-5.0) g/dL Urine Color (Yellow) Urine Appearance (Clear) Urine pH (4.6-8.0) Ur Specific Shepherd (1.005-1.030) Urine Protein (Negative) Urine Glucose (UA) (Negative) mg/dL Urine Ketones (Negative) Urine Blood (Negative) Urine Nitrite (Negative) Urine Bilirubin (Negative) Urine Urobilinogen (0.2) mg/dL Ur Leukocyte Esterase (Negative) U Hyaline Cast (Auto) (0-2) /LPF Urine Microscopic RBC (0-5) /HPF Urine Microscopic WBC (0-5) /HPF Ur Epithelial Cells (None Seen) /HPF Urine Bacteria (None Seen) /HPF Urine Culture Reflexed (NO) Influenza Type A Ag (NEGATIVE) Influenza Type B Ag (NEGATIVE) RSV (PCR) (NEGATIVE) SARS-CoV-2 (PCR) (NEGATIVE) - Progress Progress: improved Air Movement: fair Blood Culture(s) Obtained: No Antibiotics given: Yes Counseled pt/family regarding: lab results, diagnosis, need for follow-up, rad results <JULIA NAVA - Last Filed: 09/17/23 08:16> - Progress Progress Note: Sinusitis: Recent onset of facial pain and drainage. No antibiotics started yet. -Start Doxy and SoluMedrol 125mg -Continue IV fluids. -Basic labs ordered by Dr. Arreguin Oral Mass: Hard, non-draining mass on the inside of the mouth. No history of tobacco use. -Order CT scan of sinus/facial bones. -Refer to ENT for further evaluation. Patient still complaining of dizziness given meclizine which improved his symptoms. CT scan confirmed sinusitis and did not show any mass of the upper hard palate. Discussed the need for further evaluation if dizziness continues including tilt table versus CTA head neck. Patient continues to have a normal neurologic evaluation on repeat examination and was discharged home with doxycycline, prednisone and meclizine. (JULIA NAVA) Medical Desision Making - Diagnostic Testing Diagnostic test were ordered, analyzed, and reviewed by me: Yes Radiological Interpretation: Interpreted by me, Reviewed by me, Teleradiologist Report - Risk of complications The pt has a mod risk of morbidity or mortality based on: Need for prescription drug management <JULIA NAVA - Last Filed: 09/17/23 08:16> <RAFITA ARREGUIN - Last Filed: 09/15/23 18:31> - Departure Departure Disposition: Home Critical Care Time: No <JULIA NAVA - Last Filed: 09/17/23 08:16> - Departure Clinical Impression: Sinusitis, Lesion of hard palate, GERD (gastroesophageal reflux disease), Vertigo Condition: Good Referrals: FRITCH,MACIE, RECORDS MANAGER [Primary Care Provider] - Follow up/PCP as directed [facility] [NON-STAFF Y W/O PRIVILEGES] - Follow up/PCP as directed Instructions: Sinusitis in adults Prescriptions: Doxycycline Hyclate 100 mg PO BID 10 Days #20 tablet Meclizine HCl [Motion Sickness] 25 mg PO Q6H PRN 7 Days #28 tablet MDD 100mg PRN Reason: Dizziness Omeprazole 40 mg PO DAILY 30 Days #30 cap predniSONE [Prednisone] 50 mg PO DAILY 4 Days #4 tablet
[2023-09-15 18:39] LABS: Absolute Neutrophil Ct (ANC) 6.64 x10^3/uL (1.78-5.38); BASOPHIL % 0.6 % (0.2-1.2); Basophil (Absolute #) 0.06 x10^3/uL (0.01-0.08); Eosinophil % 1.7 % (0.8-7.0); Eosinophil (Absolute #) 0.16 x10^3/uL (0.04-0.54); Hematocrit 44.2 % (40.1-51.0); Hemoglobin 15.1 g/dL (13.7-17.5); IMMATURE GRAN # 0.04 x10^3u/L (0.001-0.031); IMMATURE GRAN % 0.4 % (0.001-0.429); Lymphocyte (Absolute #) 1.77 x10^3/uL (1.32-3.57); Lymphocytes % 18.9 % (21.8-53.1); Mean Cell Volume 97.6 fL (79.0-92.2); Mean Corpuscular Hemoglobin 33.3 pg (25.7-32.2); Mean Corpuscular Hgb Concent. 34.2 g/dL (32.3-36.5); Mean Platelet Volume 10.3 fL (9.4-12.4); Monocyte (Absolute #) 0.71 x10^3/uL (0.30-0.82); Monocytes % 7.6 % (5.3-12.2); Neutrophil % 70.8 % (34.0-67.9); Platelet Count 201 x10^3/uL (163-337); Red Blood Count 4.53 x10^6/uL (4.63-6.08); Red Cell Distribution Width 12.7 % (11.6-14.4); White Blood Count 9.4 x10^3/uL (4.23-9.07)
[2023-09-15] MEDS ORDERED: Zofran 4 MG/2 ML VIAL ONE (18:40)
[2023-09-15] MEDS ORDERED: Sodium Chloride 0.9% 1000 ML 1,000 ML ONE (18:40)
[2023-09-15] MEDS: Sodium Chloride 0.9% 1000 ML 1,000 ML IV STA (18:41)
[2023-09-15] MEDS: Zofran 4 MG/2 ML VIAL IV ONE (18:41)
[2023-09-15 18:52] LABS: ALBUMIN 4.3 g/dL (3.5-5.0); ANION GAP 10.8 MEQ/L (5-15); BILIRUBIN,TOTAL 0.6 mg/dL (0.2-1.3); Calcium 9.2 mg/dL (8.4-10.2); Creatinine 1 0.81 mg/dL (0.66-1.25); EST GLOMERULAR FILTRATION RATE 97.9 ML/MIN; Potassium 3.8 mmol/L (3.5-5.1); Total Protein 7.3 g/dL (6.3-8.2)
[2023-09-15 19:15] LABS: INFLUENZA A NEGATIVE (NEGATIVE); INFLUENZA B NEGATIVE (NEGATIVE); RESPIRATORY SYNCTIAL VIRUS NEGATIVE (NEGATIVE); SARS-CoV-2 Xpert Express NEGATIVE (NEGATIVE)
[2023-09-15] MEDS ORDERED: Vibramycin 100 MG ONE (19:27)
[2023-09-15] MEDS ORDERED: solu-MEDROL ONE (19:27)
[2023-09-15] MEDS ORDERED: Sterile H2O 10 ml IJ ONE (19:27)
[2023-09-15] MEDS: solu-MEDROL 125 MG, Sterile H2O 10 ml 2 ML IV ONE (19:28)
[2023-09-15] MEDS: Vibramycin 100 MG PO ONE (19:28)
--- NOTE | 2023-09-15 20:29 | XRAY ---
Indication: Cough. Comparison: October 27, 2009 Portable chest remains hyperinflated and clear. Heart and mediastinal structures within normal limits. Bony thorax intact with mild degenerative changes. Impression: Nonacute hyperinflated chest.
[2023-09-15 21:38] LABS: Appearance Clear (Clear); Bacteria None Seen /HPF (None Seen); Bilirubin Negative (Negative); Blood Negative (Negative); Epithelial Cells None Seen /HPF (None Seen); Glucose, Urine Negative (Negative); Hyaline Casts NONE SEEN /LPF (0-2); Ketones Trace (Negative); Leukocyte Esterase Negative (Negative); Nitrite Negative (Negative); Ph 6.5 (4.6-8.0); Protein,Urine Dip Trace (Negative); RBC 0-2 /HPF (0-5); Specific Gravity >=1.030 (1.005-1.030); WBC 0-2 /HPF (0-5)
[2023-09-15 21:39] LABS: ADD URINE CULTURE? NO (NO)
--- NOTE | 2023-09-15 21:39 | XRAY ---
CLINICAL HISTORY: mass left upper palate COMPARISON: None. TECHNIQUE: Contrast-enhanced CT scan of the paranasal sinuses was performed, with sagittal and coronal reconstructions. One of the following dose reduction techniques was utilized for this exam. Automated exposure control, adjustment of the mA and/or kV according to patient size, and use of iterative reconstruction. FINDINGS: No visible masses. Nasal Septum: Midline Turbinates: The turbinates are normal in size. Opacified right middle dima bullosa. No paradoxical curvature Uncinate Processes: No deviation or bulla formation O-M UNIT: Infundibula and hiatus semilunaris are blunted bilaterally. SINUSES: Bilateral mucosal thickening of both maxillary sinuses, mild on the right side and moderate on the left side. Opacification of multiple ethmoid air cells. A retention cyst is seen in the right frontal sinus. Small air-fluid level is seen in the left frontal and left sphenoid sinuses. Fovea Ethmoidalis: Normal position. Fovea ethmoidalis and cribriform plate are not low-lying Nasopharynx: Unremarkable. Facial Bones: Unremarkable. IMPRESSION: 1. No visible masses. 2. Changes of chronic sinusitis as described with small air-fluid level in the left frontal and left sphenoid sinuses suggestive of acute on top of chronic sinusitis. 3. The OMUs are blunted bilaterally. 4. Opacified right middle dima bullosa. 5. Mri correlation is recommended. Electronically Signed by: Francisco Severino MD. (09/15/2023 21:34:03 EDT)
[2023-09-15] MEDS ORDERED: PROTONIX 40 MG IV IV ONE (21:55)
[2023-09-15] MEDS: PROTONIX 40 MG IV IV ONE (21:56)
[2023-09-15 22:03] VITALS: BP 156/90; PULSE 96; RESP 30; O2SAT 96
[2023-09-15] MEDS: ANTIVERT 25 MG PO ONE (22:31)
[2023-09-15] MEDS ORDERED: ANTIVERT 25 MG ONE (22:31)
== END 2023-09-15 23:21 | disposition home or self-care (01) ==
LOC: ED 18:10
DX: J32.9 Chronic sinusitis, unspecified (principal); K13.79 Other lesions of oral mucosa; K21.9 Gastro-esophageal reflux disease without esophagitis; R42 Dizziness and giddiness; R11.0 Nausea; I10 Essential (primary) hypertension; Z79.52 Long term (current) use of systemic steroids; Z79.899 Other long term (current) drug therapy; Z72.0 Tobacco use
CPT/HCPCS: 0241U; 36000; 36415; 70487; 71045; 80053; 81001; 83605; 84484; 85025; 93005; 96360; 96374; 96375; 99284; J2405; J2919; A9270-GY